=== PATIENT | male | born 1960 | race Caucasian/White ===

== ENCOUNTER 2017-03-18 14:23 | Inpatient (IN) | payer OTHER, MEDICARE ==
[2017-03-16 14:01] LABS: ASCORBIC ACID (UR NOT ORDER) NEG (NEG); BILIRUBIN, URINE NEGATIVE (NEG); KETONE, URINE NEGATIVE (NEG); LEUKOCYTE ESTERASE(NOT OR NEG (NEG); WBC (NOT ORDERED) (RFLEX) < 1 (0-5)
[2017-03-16 14:26] LABS: BASOPHILS 0.3 %; BASOPHILS ABSOLUTE 0.04 10/3/uL (0.0-0.16); EOSINOPHILS 0.9 %; HEMOGLOBIN 11.9 g/dL (13.6-17.8); IMMATURE GRANULOCYTES 0.3 %; IMMATURE GRANULOCYTES ABSOLUTE 0.03 10/3/uL (0.0-0.11); LYMPHOCYTES 19.8 %; LYMPHOCYTES ABSOLUTE 2.28 10/3/uL (0.67-4.30); MANUAL DIFF NO %; MEAN CORPUS HGB CONC 32.2 g/dL (32.0-36.0); MEAN CORPUSCULAR HEMOGLOB 24.9 pg (26.0-34.0); MEAN CORPUSCULAR VOLUME 77.4 fL (80-100); MEAN PLATELET VOLUME 8.5 fL (9.2-13.0); MONOCYTES 4.4 %; MONOCYTES ABSOLUTE 0.51 10/3/uL (0.21-1.20); NEUTROPHILS 74.3 %; NEUTROPHILS ABSOLUTE 8.54 10/3/uL (2.02-8.40); PLATELET COUNT 404 10/3/uL (150-400); RBC DISTRIBUTION WIDTH 16.2 % (12.0-16.0); RED CELL COUNT 4.78 10/6/uL (4.7-6.1); WHITE BLOOD CELLS 11.5 10/3/uL (4.5-10.5)
[2017-03-16 14:33] LABS: INTERNATIONAL NORMAL RATI 1.2 UNITS (-); PROTIME (NOT ORD) 15.4 SEC (12.0-14.5)
[2017-03-16 14:43] LABS: BUN (BLOOD UREA NITROGEN) 22 MG/DL (6-23); CALCIUM, SERUM 9.5 MG/DL (8.5-10.4); CHLORIDE, SERUM 102 MMOL/L (96-112); CO2 (CARBON DIOXIDE) 27 MMOL/L (24-34); CREATININE 1.47 MG/DL (0.70-1.30); GFR AFRICAN AMERICAN 60 ML/MIN (>=60); GFR NON AFRICAN AMERICAN 52 ML/MIN (>=60); POTASSIUM, SERUM 4.2 MMOL/L (3.5-5.3); SGOT(AST) 29 U/L (5-40); SGPT(ALT) 23 U/L (5-65); SODIUM, SERUM 139 MMOL/L (135-148); TOTAL BILIRUBIN 0.5 MG/DL (0-1.2); TOTAL PROTEIN 9.5 G/DL (6.0-8.5)
[2017-03-16 14:44] LABS: A/G RATIO 0.7 (0.7-1.9); ALKALINE PHOSPHATASE 107 U/L (45-117); GLOBULIN 5.5 G/DL (2.5-4.1); GLUCOSE, SERUM 183 MG/DL (60-99)
--- NOTE | ~2017-03-18 | OP ---
Record Of Operation [facility] [address] [place]. [address] NAME: JAILYN NÚÑEZ : 56 STATUS : ADM IN [facility]#: [id number] AGE: 56 ADM/REG DATE : 03/18/17 MR#: [id number] REPORT SERV DATE: 03/19/17 DICTATED BY: KYLER EDMOND DATE: 03/19/17 REPORT STATUS : Draft TRANSCRIBED BY: MODRiaz DATE: 03/19/17 DATE OF PROCEDURE: 03/18/2017 PREOPERATIVE DIAGNOSIS: Septic right total knee. POSTOPERATIVE DIAGNOSIS: Septic right total knee. PROCEDURE: Right total knee resection, placing antibiotic block. JAVA SUPPORT ENGINEER: See chart. DESCRIPTION OF PROCEDURE: The patient was taken to the operating room and placed supine on the table in normal fashion without incident. General anesthetic was induced per the anesthesiologist. The patient was carefully positioned, padded, prepped, and draped normal sterile fashion. Right lower extremity was elevated. Tourniquet inflated to 350. Sharp dissection was made through the old incision with electrocautery through the fat. Sharp quad splitting approach was carried out. The patella was subluxed. Benign-appearing fluid was sent for cultures and Gram stain. Complete synovectomy was performed. Femoral and tibial components were removed with flexible osteotome. Cement was meticulously debrided. The bony cuts were then freshened up with a saw and again meticulously debrided with a curette. The patella was removed with an oscillating saw and curette without any residual cement and plastic pegs. All surfaces were copiously irrigated with pulsatile lavage. We then completely re-draped and re-gowned and irrigated with three more liters of pulsatile lavage. Antibiotic-containing cement, that had vancomycin added to, was then placed in a doughy fashion into the knee to form a large cement spacer. Once all cement was hardened, knee was closed in a layered fashion. The wound was dressed sterilely. The patient awakened taken to the postanesthesia care unit without incident. COMPLICATIONS: None. SPECIMENS: Removed components. ESTIMATED BLOOD LOSS: Trace. WTB/MODL Yoselin Edmond M.D. / [id number] CC: Kermit Devlin [place]
--- NOTE | ~2017-03-18 | DS ---
Discharge Summary [facility] [address] [place]. [address] NAME: JAILYN NÚÑEZ : 56 STATUS : DIS IN PAT#: [id number] AGE: 56 ADM/REG DATE : 03/18/17 MR#: [id number] REPORT SERV DATE: 03/30/17 DICTATED BY: KYLER EDMOND DATE: 03/30/17 REPORT STATUS : Draft TRANSCRIBED BY: ALEXANDER DATE: 03/30/17 Data Collection from hospitalization DISCHARGE DIAGNOSES: 1. Septic right total knee. 2. Hypertension. 3. Gastroesophageal reflux disease. 4. Gout. 5. Anemia. 6. Osteoarthritis. 7. Obesity. 8. Prediabetic. CONSULTATION: Rito Ross M.D. PROCEDURES PERFORMED: Right total knee resection, placing antibiotic block, 03/18/2017. PATHOLOGY: Bone, soft tissue, and hardware from right knee-orthopedic hardware (see gross description). Soft tissues showed acute synovitis consistent with clinical history of infected joint. Fragments of bone showed chronic osteomyelitis, but no definite acute osteomyelitis. MEDICATIONS: Zyloprim 300 mg every morning, Halfprin 81 mg daily, Catapres 0.1 mg at bedtime, ferrous sulfate 300 mg every morning, Posey 10/325 one tablet every four hours as needed, Glucophage 500 mg with breakfast and supper, Theragran tablets one tablet daily, Coumadin 5 mg one tablet every evening. CONDITION AT DISCHARGE: Stable. DISPOSITION: The patient was discharged home to be followed by home health care on an 1800- calorie diabetic diet with activities as instructed. He would follow up with Dr. Juan Malin, 04/01/2017. HOSPITAL COURSE: This is a 56-year-old man, who has a septic right total knee. Treatment options were discussed and it was elected to proceed with surgical intervention. He was admitted to the hospital at this time for further evaluation and treatment. Upon admission, he was taken to the operating room, where he underwent the above-mentioned procedure. He tolerated this well and there were no complications. On postop day one, he was doing well. He had normal distal pulses. BHAVANI hose were in place. IV vancomycin was being provided. Losartan was held. Pepcid was continued. He was placed on level 2 sliding scale insulin. He was evaluated by Physical Therapy. He was seen in consultation by Dr. Rito Ross. He had been followed by Dr. 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 He had then went on suppressive penicillin since. He had had persistent pain and swelling. He had had a recent subjective low-grade fever. It was felt that at this time, he likely had some Enterococcus as before. A PICC line was going to be inserted. Penicillin G was going to begin. On postop day two, Discharge Summary [address] [address] NAME: JAILYN NÚÑEZ : 56 STATUS : DIS IN PAT#: [id number] AGE: 56 ADM/REG DATE : 03/18/17 MR#: [id number] REPORT SERV DATE: 03/30/17 DICTATED BY: KYLER EDMOND DATE: 03/30/17 REPORT STATUS : Draft TRANSCRIBED BY: MODL DATE: 03/30/17 he was afebrile. Creatinine level was 1.08. Operative culture remained negative to date. We encouraged him to mobilize with Physical Therapy. Losartan was restarted. Clonidine was being provided. Blood pressure was controlled. Metformin and level 2 sliding scale insulin were continued. A PICC line was inserted. On 03/21/2017, he continued to do well. IV penicillin G was being provided. He continued to progress. Discharge planning was performed. On 03/23/2017, he was anxious to leave. Discharge instructions were given. Operative cultures had revealed Enterococcus faecalis. Due to his improved and stable condition, he was discharged home to be followed by home health care with the above-stated instructions. Information collected by: Milly Ugarte I submit the above information as my discharge summary. ROBE/ALEXANDER Yoselin Edmond M.D. / [id number] CC: Kermit Devlin [place] Hal Hill, M.D.
[~2017-03-18 14:23] MED LIST: ACET500CAP PO; ASAB PO; C5; CAT1 PO; COLCH6 PO; COUMADIN7.5 MG PO; COZAAR100 MG PO; DIL2TAB PO; FESO4 PO; GLUCPH PO; HALF81 PO; HEMOCYTE324 MG PO; K500 PO; MULTIPLE VIT PO; MVI PO; NAP375 PO; NAP500 PO; NORCO1 TA2 PO; NORCO1 TAB PO; OXYCON10 PO; PCET PO; PERCOCET1 TA2 PO; PRILO PO; PRILOSEC OTC20 MG PO; Z300 PO
[2017-03-19 04:18] LABS: HEMATOCRIT 34.6 % (40.0-51.0); HEMOGLOBIN 10.8 g/dL (13.6-17.8)
[2017-03-19 04:21] LABS: INTERNATIONAL NORMAL RATI 1.3 UNITS (-); PROTIME (NOT ORD) 15.8 SEC (12.0-14.5)
[2017-03-19 04:25] LABS: CHLORIDE, SERUM 105 MMOL/L (96-112); CO2 (CARBON DIOXIDE) 29 MMOL/L (24-34); CREATININE 1.22 MG/DL (0.70-1.30); GFR AFRICAN AMERICAN 75 ML/MIN (>=60); GFR NON AFRICAN AMERICAN 65 ML/MIN (>=60); GLUCOSE, SERUM 175 MG/DL (60-99); POTASSIUM, SERUM 4.3 MMOL/L (3.5-5.3); SODIUM, SERUM 141 MMOL/L (135-148)
[2017-03-19 04:27] LABS: BUN (BLOOD UREA NITROGEN) 17 MG/DL (6-23)
[2017-03-20 04:44] LABS: HEMOGLOBIN 9.3 g/dL (13.6-17.8)
[2017-03-20 04:48] LABS: HEMATOCRIT 30.4 % (40.0-51.0)
[2017-03-20 04:54] LABS: INTERNATIONAL NORMAL RATI 1.3 UNITS (-); PROTIME (NOT ORD) 15.9 SEC (12.0-14.5)
[2017-03-20 04:58] LABS: BUN (BLOOD UREA NITROGEN) 18 MG/DL (6-23); CALCIUM, SERUM 8.4 MG/DL (8.5-10.4); CHLORIDE, SERUM 105 MMOL/L (96-112); CO2 (CARBON DIOXIDE) 28 MMOL/L (24-34); CREATININE 1.08 MG/DL (0.70-1.30); GFR AFRICAN AMERICAN 87 ML/MIN (>=60); GFR NON AFRICAN AMERICAN 75 ML/MIN (>=60); GLUCOSE, SERUM 152 MG/DL (60-99); POTASSIUM, SERUM 4.2 MMOL/L (3.5-5.3); SODIUM, SERUM 140 MMOL/L (135-148)
[2017-03-21 04:24] LABS: HEMATOCRIT 33.2 % (40.0-51.0); HEMOGLOBIN 10.2 g/dL (13.6-17.8)
[2017-03-21 04:30] LABS: INTERNATIONAL NORMAL RATI 1.3 UNITS (-); PROTIME (NOT ORD) 15.6 SEC (12.0-14.5)
[2017-03-21 04:33] LABS: BUN (BLOOD UREA NITROGEN) 18 MG/DL (6-23); CALCIUM, SERUM 9.2 MG/DL (8.5-10.4); CHLORIDE, SERUM 101 MMOL/L (96-112); CO2 (CARBON DIOXIDE) 30 MMOL/L (24-34); GFR AFRICAN AMERICAN 77 ML/MIN (>=60); GFR NON AFRICAN AMERICAN 66 ML/MIN (>=60); GLUCOSE, SERUM 123 MG/DL (60-99); POTASSIUM, SERUM 3.9 MMOL/L (3.5-5.3); SODIUM, SERUM 139 MMOL/L (135-148)
[2017-03-22 04:20] LABS: INTERNATIONAL NORMAL RATI 1.3 UNITS (-)
[2017-03-23 04:24] LABS: INTERNATIONAL NORMAL RATI 1.3 UNITS (-); PROTIME (NOT ORD) 15.9 SEC (12.0-14.5)
[2017-03-23 11:04] LABS: BASOPHILS 0.3 %; BASOPHILS ABSOLUTE 0.03 10/3/uL (0.0-0.16); EOSINOPHILS 4.3 %; EOSINOPHILS ABSOLUTE 0.46 10/3/uL (0.0-0.53); HEMATOCRIT 35.6 % (40.0-51.0); HEMOGLOBIN 11.2 g/dL (13.6-17.8); IMMATURE GRANULOCYTES 0.2 %; IMMATURE GRANULOCYTES ABSOLUTE 0.02 10/3/uL (0.0-0.11); LYMPHOCYTES 20.1 %; LYMPHOCYTES ABSOLUTE 2.14 10/3/uL (0.67-4.30); MEAN CORPUS HGB CONC 31.5 g/dL (32.0-36.0); MEAN CORPUSCULAR HEMOGLOB 24.9 pg (26.0-34.0); MEAN CORPUSCULAR VOLUME 79.3 fL (80-100); MEAN PLATELET VOLUME 8.4 fL (9.2-13.0); MONOCYTES 8.2 %; MONOCYTES ABSOLUTE 0.87 10/3/uL (0.21-1.20); NEUTROPHILS 66.9 %; NEUTROPHILS ABSOLUTE 7.15 10/3/uL (2.02-8.40); PLATELET COUNT 438 10/3/uL (150-400); RED CELL COUNT 4.49 10/6/uL (4.7-6.1); WHITE BLOOD CELLS 10.7 10/3/uL (4.5-10.5)
[2017-03-23 11:06] LABS: MANUAL DIFF NO %
[2017-03-23 11:14] LABS: BUN (BLOOD UREA NITROGEN) 17 MG/DL (6-23); CALCIUM, SERUM 9.5 MG/DL (8.5-10.4); CHLORIDE, SERUM 101 MMOL/L (96-112); CO2 (CARBON DIOXIDE) 33 MMOL/L (24-34); CREATININE 1.17 MG/DL (0.70-1.30); GFR AFRICAN AMERICAN 79 ML/MIN (>=60); GFR NON AFRICAN AMERICAN 68 ML/MIN (>=60); GLUCOSE, SERUM 132 MG/DL (60-99); POTASSIUM, SERUM 4.3 MMOL/L (3.5-5.3); SODIUM, SERUM 137 MMOL/L (135-148)
[2017-03-23] MEDS ORDERED: C5 PO (16:28)
[2017-05-14] MEDS ORDERED: PCET PO (15:16)
== END 2017-03-23 17:20 | disposition home or self-care (01) | DRG 488 ==
LOC: SDC/OF 14:23 → 3SO 23:47
PROVIDERS: Internal Medicine Infectious Disease; Nurse Practitioner Acute Care; Specialist
PROC: 02HV33Z Insertion of Infusion Device into Superior Vena Cava, Percutaneous Approach (ICD-10-PCS; principal; 2017-03-20)
PROC: 0ST Lower Joints, Resection (ICD-10-PCS; 2017-03-20)
PROC: 4A02X4A Measurement of Cardiac Electrical Activity, Guidance, External Approach (ICD-10-PCS; 2017-03-20)
PROC: 0SHC08Z Insertion of Spacer into Right Knee Joint, Open Approach (ICD-10-PCS; 2017-03-20)
DX: M00.9 Pyogenic arthritis, unspecified (principal); N17.9 Acute kidney failure, unspecified; Z68.42 Body mass index [BMI] 45.0-49.9, adult; I10 Essential (primary) hypertension; E66.01 Morbid (severe) obesity due to excess calories; K21.9 Gastro-esophageal reflux disease without esophagitis; E11.9 Type 2 diabetes mellitus without complications
CPT/HCPCS: 36415; 36569; 71020; 80048; 80053; 81001; 82962; 85014; 85018; 85025; 85610; 86850; 86900; 86901; 87015; 87070; 87075; 87077; 87102; 87116; 87186; 87205; 87641; 88300; 88304; 88311; 93005; 97162-GP; A9270-GY; C1751; J0690; J1170; J1885; J2175; J2250; J2270; J2405; J2540; J2550; J2710; J2795; J3010; J3370